=== PATIENT | male | born 1985 | race Caucasian/White ===

== ENCOUNTER 2019-08-29 05:07 | Day surgery (SDC) | payer OTHER, SELFPAY ==
[2019-08-29] VITALS (14 sets, daily range): BP systolic 114–151; BP diastolic 86–101; PULSE 43–94; RESP 10–22; TEMP 36.3–37.1; O2SAT 94–100; BMI 29.9
--- NOTE | 2019-08-29 05:14 | ED_ITS ---
Entered by Valerie Sanabria, acting as scribe for Iraida Jasmine Documented by User: Iraida Jasmine 08/29/19 05:20 HPI - Abdominal Pain General: Chief Complaint: Abdominal Pain Stated Complaint: RLQ PAIN Time Seen by Provider: 08/29/19 05:15 Source: patient and family Mode of arrival: ambulatory History of Present Illness: HPI narrative: 34 y/o male presents to the ED with complaint of abd pain. Pt states this started Tuesday while he was at work. He was awakened around 0100 this AM with sharp RLQ pain. Pt states he has had nausea, but no vomiting. MD elicited complaint: abdominal pain Onset (ago): day(s) (1) Pain Consistency: constant Location: RLQ Severity: moderate Quality: sharp Exacerbating factors: movement Relieving factors: nothing Associated Symptoms: Reports other (see HPI); Denies chills, coffee ground emesis, constipation, GI cramping, diarrhea, dysuria, fever(s), hematochezia, hematuria, hematemesis, melena, syncope and vomiting Review of Systems Const: Denies: fever, chills, body aches, fatigue, malaise or diaphoresis Eyes: Denies: change in vision or blurry vision ENMT: Denies: throat pain, painful swallowing, hoarseness, ear pain, ear discharge, Change in hearing or nasal discharge Card: Denies: chest pain, palpitations, irregular heart rhythm, syncope, pre- syncope, shortness of breath on exertion or shortness of breath when lying down Resp: Denies: shortness of breath, productive cough, non-productive cough, wheezing, coughing up blood or chest congestion GI: Reports: other (see HPI); Denies: vomiting, vomiting blood, coffee grounds in vomit, diarrhea, constipation, cramping, blood in stool or black tarry stool : Denies: flank pain, difficulty urinating, painful urination, urinary frequency, urinary urgency, decreased urine ouput, urinary incontinence or blood in urine Musc: Denies: neck pain, back pain, extremity pain, extremity swelling, joint pain, joint swelling, joint warmth or joint stiffness Skin/Breast: Denies: rash, skin tenderness or yellow skin Neuro: Denies: headache, numbness in extremities, weakness in extremities, changes in sensation, lack of coordination, difficulty walking, dizziness, vertigo or confusion Endo: Denies: excessive thirst, tired all the time, cold intolerance, excessive sweating, flushing or hot flashes Rajiv/Lymph: Denies: easy bruising, easy bleeding, petechiae or enlarged lymph nodes All/Imm: Denies: hives, throat swelling, tongue swelling, facial swelling or acute wheezing PFSH ED PFSH: Statuses (acute, chronic, etc) shown below reflect problem list status as previously entered and may not be historically accurate Medical History (Updated 08/29/19 @ 07:45 by Reji Dickey MD) Hypertension (Acute) Surgical History (Updated 08/29/19 @ 07:50 by Reji Dickey MD) Hx of oral surgery (Acute) Teeth extraction Social History (Updated 08/29/19 @ 07:50 by Reji Dickey MD) Smoking and tobacco status: current some day smoker cigars Alcohol intake: current Alcohol use comment: But rarely Physical Exam Const: COMMON NORMALS: no apparent distress, oriented x3, no limitations, healthy appearing and well nourished EXAM LIMITATIONS: no altered mental status GENERAL APPEARANCE: cooperative, well kempt and well developed ORIENTATION/CONSCIOUSNESS: Yes awake HENMT: COMMON NORMALS: normocephalic, head/scalp atraumatic, hearing grossly normal bilaterally, external ears normal, EAC's normal, external nose normal and moist oral mucous membranes HEAD & SCALP: normal to inspection, normocephalic and atraumatic FACE & SINUS: normal facial exam and face symmetric NOSE: external nose normal and nares normal EXTERNAL EAR: Yes external ears normal EXTERNAL AUDITORY CANAL: EAC's normal MOUTH: oral and palatal mucosa normal and tongue normal Eye: COMMON NORMALS: PERRL, EOMs intact bilaterally, conjunctivae normal and no scleral icterus GENERAL EYE: normal appearance of both eyes and normal light reflex CONJUNCTIVA: Yes conjunctivae normal SCLERA: sclerae normal CORNEA: Yes corneas normal PUPIL: Yes PERRL DIRECT OPHTHALMOSCOPY: Yes normal light reflex Neck/C-Spine: COMMON NORMALS: full ROM, no lymphadenopathy, supple, no meningeal signs and no JVD GENERAL: Yes normal visual inspection and Yes trachea midline CERVICAL SPINE: Yes cervical ROM normal Chest: COMMONS NORMALS: inspection of chest normal and palpation of chest normal Resp: COMMON NORMALS: normal respiratory effort, no retractions, no use of accessory muscles and clear to auscultation bilaterally EFFORT & INSPECTION: Yes able to speak in complete sentences AUSCULTATION: clear to auscultation bilaterally Cardio: COMMON NORMALS: no JVD, regular rate, regular rhythm, S1 normal heart sound, S2 normal heart sound, no gallops, no clicks, no murmurs and no rub JUGULAR VENOUS DISTENTION: no JVD RATE: regular rate RHYTHM: regular rhythm HEART SOUNDS: S1 normal and S2 normal : COMMON NORMALS: Yes no CVA tenderness BLADDER/KIDNEY EXAM: Yes no CVA tenderness Back/Pelvis: COMMON NORMALS: no CVA tenderness, thoracic and lumbar spine normal to inspection, no thoracic nor lumbar tenderness and thoraco-lumbar ROM normal Extremity: COMMON NORMALS: normal to inspection, full ROM, normal capillary refill, no joint enlargement, no clubbing, cyanosis or edema and no calf tenderness Neuro: COMMON NORMALS: oriented x3, CN's II-XII intact bilaterally, moves all extremities, no focal motor deficits and no sensory deficits noted MENINGEAL SIGNS: Yes no meningeal signs Psych: COMMON NORMALS: mental status grossly normal, thought process normal, cooperative, affect normal, speech normal and activity/motor behavior normal APPEARANCE: Yes well kempt SPEECH: Yes normal speech THOUGHT PROCESS: normal thought process Skin: COMMON NORMALS: no rashes or lesions noted, skin turgor normal, no jaundice, no petechiae and no mottling GENERAL SKIN EXAM: no rashes or lesions noted and turgor normal Course Vital Signs: Vital signs: Vital Signs Temperature 98.2 F 08/29/19 07:26 Pulse Rate 82 08/29/19 07:26 Respiratory Rate 16 08/29/19 07:26 Blood Pressure 137/87 08/29/19 07:26 Pulse Oximetry 98 08/29/19 07:26 MDM - Abdominal Pain Lab Data: Labs: Lab Results 08/29/19 08/29/19 08/29/19 Range/Units 05:30 05:30 06:40 WBC 15.3 H (4.0-10.0) 10^3/ uL RBC 5.36 H (4.1-5.3) 10^6/u L Hgb 15.8 (11.7-16.6) g/dL Hct 47.7 (42.0-52.0) % MCV 89.0 (80-94) fL MCH 29.5 (28.0-34.0) pg MCHC 33.1 (30.0-36.0) g/dL RDW 12.4 (12.1-15.1) % Plt Count 308 (130-400) 10^3/c mm MPV 9.2 (7.4-10.4) fL Neut % (Auto) 75.9 % Lymph % (Auto) 12.7 % [place] % (Auto) 10.2 % Eos % (Auto) 0.5 % Baso % (Auto) 0.3 % Neut # (Auto) 11.7 H (1.8-7.7) 10^3/u L Lymph # (Auto) 2.0 (0.8-4.8) 10^3/u L [place] # (Auto) 1.6 H (0.2-0.9) 10^3/u L Eos # (Auto) 0.1 (0.0-0.8) 10^3/u L Baso # (Auto) 0.0 (0.0-0.1) 10^3/u L Nucleated RBC % (a uto) 0 % Nucleated RBCs # 0.0 /100WBC Sodium 137 (136-145) mmol/L Potassium 4.0 (3.5-5.1) mmol/L Chloride 101 (98-107) mmol/L Carbon Dioxide 23 (22-29) mmol/L Anion Gap 17.0 (5-19) BUN 11 (6-20) mg/dL Creatinine 0.7 (0.7-1.2) mg/dL GFR Calculation 129.9 (90-130) mL/min Glucose 94 (74-109) mg/dL Calcium 10.0 (8.6-10.0) mg/Dl Total Bilirubin 1.3 H (0.15-1.2) mg/dL AST 28 (0-40) U/L ALT 54 H (0-41) U/L Alkaline Phosphata se 64 (40-130) IU/L Total Protein 7.5 (6.6-8.7) g/dL Albumin 4.2 (3.5-5.2) g/dL Globulin 3.3 (1.3-4.6) g/dL Lipase 24 (13-60) U/L Urine Color Yellow (Yellow) Urine Appearance Clear (CLEAR) Urine pH 8 H (5-7) Ur Specific Gravit y 1.005 (1.005-1.030) Urine Protein Neg (Negative) Urine Glucose (UA) Norm (Normal) Urine Ketones Negative (Negative) Urine Occult Blood Neg (Negative) Urine Nitrate Negative (Negative) Urine Bilirubin Neg (NEGATIVE) Prot Sulfosalicyli c Acd Negative Urine Urobilinogen Norm (Negative) mg/dL Ur Leukocyte Radha ase Negative (Negative) Urine RBC Rare (0-2) /hpf Urine WBC Rare (0-5) /hpf Ur Squamous Epith Cells None (0-5) Urine Bacteria None (NONE) Discharge Plan Discharge Patient Disposition: Admitted As Inpatient Referrals: Mc Gonzales DO [Family Provider] - Carri Olvera DO [Primary Care Provider] - Discharge Date/Time: 08/29/19 07:52 Sign Out Sign Out Data: Patient Sign Out occurred on 08/29/19 at 06:14. Patient's care was discussed, and care was transferred from to Chi Zaman DO. Post-Handoff Eval: Previous notes from Dr. Barber reviewed. We are waiting a CT of the abdomen radiology read as nonperforated appendicitis called discussed with Dr. Dickey he will come to the department see the patient patient informed. Coding Level of Care Code ED Application Support for Chg Fwd Exam Problem Focused Documented by User: Chi Zaman DO 08/29/19 07:53 HPI - Abdominal Pain General: Chief Complaint: Abdominal Pain Stated Complaint: RLQ PAIN Time Seen by Provider: 08/29/19 05:15 PFSH ED PFSH: Statuses (acute, chronic, etc) shown below reflect problem list status as previously entered and may not be historically accurate Medical History (Updated 08/29/19 @ 07:45 by Reji Dickey MD) Hypertension (Acute) Surgical History (Updated 08/29/19 @ 07:50 by Reji Dickey MD) Hx of oral surgery (Acute) Teeth extraction Social History (Updated 08/29/19 @ 07:50 by Reji Dickey MD) Smoking and tobacco status: current some day smoker cigars Alcohol intake: current Alcohol use comment: But rarely Course Vital Signs: Vital signs: Vital Signs Temperature 98.2 F 08/29/19 07:26 Pulse Rate 82 08/29/19 07:26 Respiratory Rate 16 08/29/19 07:26 Blood Pressure 137/87 08/29/19 07:26 Pulse Oximetry 98 08/29/19 07:26 MDM - Abdominal Pain Lab Data: Labs: Lab Results 08/29/19 08/29/19 08/29/19 Range/Units 05:30 05:30 06:40 WBC 15.3 H (4.0-10.0) 10^3/ uL RBC 5.36 H (4.1-5.3) 10^6/u L Hgb 15.8 (11.7-16.6) g/dL Hct 47.7 (42.0-52.0) % MCV 89.0 (80-94) fL MCH 29.5 (28.0-34.0) pg MCHC 33.1 (30.0-36.0) g/dL RDW 12.4 (12.1-15.1) % Plt Count 308 (130-400) 10^3/c mm MPV 9.2 (7.4-10.4) fL Neut % (Auto) 75.9 % Lymph % (Auto) 12.7 % [place] % (Auto) 10.2 % Eos % (Auto) 0.5 % Baso % (Auto) 0.3 % Neut # (Auto) 11.7 H (1.8-7.7) 10^3/u L Lymph # (Auto) 2.0 (0.8-4.8) 10^3/u L [place] # (Auto) 1.6 H (0.2-0.9) 10^3/u L Eos # (Auto) 0.1 (0.0-0.8) 10^3/u L Baso # (Auto) 0.0 (0.0-0.1) 10^3/u L Nucleated RBC % (a uto) 0 % Nucleated RBCs # 0.0 /100WBC Sodium 137 (136-145) mmol/L Potassium 4.0 (3.5-5.1) mmol/L Chloride 101 (98-107) mmol/L Carbon Dioxide 23 (22-29) mmol/L Anion Gap 17.0 (5-19) BUN 11 (6-20) mg/dL Creatinine 0.7 (0.7-1.2) mg/dL GFR Calculation 129.9 (90-130) mL/min Glucose 94 (74-109) mg/dL Calcium 10.0 (8.6-10.0) mg/Dl Total Bilirubin 1.3 H (0.15-1.2) mg/dL AST 28 (0-40) U/L ALT 54 H (0-41) U/L Alkaline Phosphata se 64 (40-130) IU/L Total Protein 7.5 (6.6-8.7) g/dL Albumin 4.2 (3.5-5.2) g/dL Globulin 3.3 (1.3-4.6) g/dL Lipase 24 (13-60) U/L Urine Color Yellow (Yellow) Urine Appearance Clear (CLEAR) Urine pH 8 H (5-7) Ur Specific Gravit y 1.005 (1.005-1.030) Urine Protein Neg (Negative) Urine Glucose (UA) Norm (Normal) Urine Ketones Negative (Negative) Urine Occult Blood Neg (Negative) Urine Nitrate Negative (Negative) Urine Bilirubin Neg (NEGATIVE) Prot Sulfosalicyli c Acd Negative Urine Urobilinogen Norm (Negative) mg/dL Ur Leukocyte Radha ase Negative (Negative) Urine RBC Rare (0-2) /hpf Urine WBC Rare (0-5) /hpf Ur Squamous Epith Cells None (0-5) Urine Bacteria None (NONE) Discharge Plan Discharge Patient Disposition: Admitted As Inpatient Referrals: Mc Gonzales DO [Family Provider] - Carri Olvera DO [Primary Care Provider] - Discharge Date/Time: 08/29/19 07:52 Sign Out Sign Out Data: Patient Sign Out occurred on 08/29/19 at 06:14. Patient's care was discussed, and care was transferred from to Chi Zaman DO. Post-Handoff Eval: Previous notes from Dr. Sunil reviewed. We are waiting a CT of the abdomen radiology read as nonperforated appendicitis called discussed with Dr. Dickey he will come to the department see the patient patient informed. Coding Level of Care Code ED Application Support for Chg Fwd Exam Problem Focused
--- NOTE | 2019-08-29 05:17 | CTR_ITS ---
PROCEDURE INFORMATION: Exam: CT Abdomen And Pelvis With Contrast Exam date and time: 08/29/2019 5:40 AM Age: 34 years old Clinical indication: Abdominal pain; Acute; Patient HX: Abd pain, rlq pain TECHNIQUE: Imaging protocol: Computed tomography of the abdomen and pelvis with intravenous contrast. Total DLP: 1176.71 mGy-cm Radiation optimization: All CT scans at this facility use at least one of these dose optimization techniques: automated exposure control; mA and/or kV adjustment per patient size (includes targeted exams where dose is matched to clinical indication); or iterative reconstruction. Contrast material: OMNI 300; Contrast volume: 95 ml; Contrast route: 20G; COMPARISON: No relevant prior studies available. FINDINGS: Liver: No mass. Gallbladder and bile ducts: No calcified stones. No ductal dilation. Pancreas: No ductal dilation. Spleen: Spleen measures 14cm in length. Adrenals: No mass. Kidneys and ureters: No hydronephrosis. Stomach and bowel: No obstruction. No mucosal thickening. Appendix: The appendix is thickened measuring approximately 11 mm with periappendiceal stranding. There are multiple appendicoliths noted in the lumen of the appendix. Intraperitoneal space: No free air. No significant fluid collection. Vasculature: No abdominal aortic aneurysm. Lymph nodes: No enlarged lymph nodes. Bladder: Unremarkable as visualized. Reproductive: Unremarkable as visualized. Bones/joints: Unremarkable. No acute fracture. Soft tissues: Unremarkable. CT/CT abdomen pelvis w con* [id number] IMPRESSION: Non perforated appendicitis. Radiation Dose CTDIVOL = (mGy): DLP = 1176.71 (mGy-cm)
[2019-08-29] MEDS: ondansetron 2 mg/ML SDV 2 mL 4 MG IVP (05:35)
[2019-08-29] MEDS: morphine 4 mg/mL SDV 1 mL IVP (05:35)
[2019-08-29] MEDS: sodium chloride 0.9% 1,000 ML 999 ML IV (05:36)
[2019-08-29 05:37] LABS: Basophils % 0.3 %; Eosinophils # 0.1 10^3/uL (0.0-0.8); Eosinophils % 0.5 %; Hematocrit 47.7 % (42.0-52.0); Hemoglobin 15.8 g/dL (11.7-16.6); Lymphocytes % 12.7 %; Mean Corpuscular HGB Conc 33.1 g/dL (30.0-36.0); Mean Corpuscular Hemoglobin 29.5 pg (28.0-34.0); Mean Platelet Volume 9.2 fL (7.4-10.4); Monocytes # 1.6 10^3/uL (0.2-0.9); Monocytes % 10.2 %; Neutrophils # 11.7 10^3/uL (1.8-7.7); Neutrophils % 75.9 %; Nucleated Red Blood Cells % 0 %; Platelet Count 308 10^3/cmm (130-400); Red Blood Count 5.36 10^6/uL (4.1-5.3); Red Cell Distribution Width 12.4 % (12.1-15.1); White Blood Count 15.3 10^3/uL (4.0-10.0)
--- NOTE | 2019-08-29 05:40 | PC.NURSE ---
Introduced self to patient and initiated vital signs. Pt is A&O x 3 and agreeable. Pt states that the reason for the ER visit today is due to LRQ abdominal pain which presented yesterday but progressed to unbearable pain this AM. Reassured patient of needs and will continue to monitor.
[2019-08-29 05:54] LABS: Alanine Aminotransferase 54 U/L (0-41); Albumin Level 4.2 g/dL (3.5-5.2); Alkaline Phosphatase 64 IU/L (40-130); Blood Urea Nitrogen 11 mg/dL (6-20); Carbon Dioxide 23 mmol/L (22-29); Chloride 101 mmol/L (98-107); Globulin 3.3 g/dL (1.3-4.6); Glomerular Filtration Rate 129.9 mL/min (90-130); Glucose 94 mg/dL (74-109); Lipase 24 U/L (13-60); Sodium 137 mmol/L (136-145); Total Bilirubin 1.3 mg/dL (0.15-1.2); Total Protein 7.5 g/dL (6.6-8.7)
[2019-08-29] MEDS: iohexol 300 mg/mL 100 mL Btl IV (05:57)
[2019-08-29 06:41] LABS: Aspartate Amino Transferase 28 U/L (0-40)
[2019-08-29 06:59] LABS: Bilirubin Urine Neg (NEGATIVE); Blood Urine Neg (Negative); Glucose Urine UA Norm (Normal); Ketones Urine Negative (Negative); Leukocyte Esterase Urine Negative (Negative); Nitrate Urine Negative (Negative); Protein Urine Neg (Negative); Specific Gravity, Urine 1.005 (1.005-1.030); Urine Appearance Clear (CLEAR); Urine Color Yellow (Yellow); Urobilinogen Urine Norm (Negative); pH Urine 8 (5-7)
[2019-08-29 07:01] LABS: Sulfosalicylic Acid Urine Negative
[2019-08-29 07:03] LABS: Add Urine Culture? No; RBC Urine RARE /hpf (0-2); WBC Urine RARE /hpf (0-5)
[2019-08-29] MEDS: sodium chloride 0.9% 1,000 ML 125 ML IV (07:18)
--- NOTE | 2019-08-29 07:44 | P.HP_ITS ---
Providers/Chief Complaint Admitting Physician: General Surgery Reji Dickey MD Primary Care Provider: Carri Olvera DO Chief Complaint: RLQ PAIN History of Present Illness Milo Herndon is a 34 year old male who says he developed some suprapubic pain yesterday afternoon. As the evening went on it worsened. He said he awoke around 1 AM this morning with significant pain in the right lower quadrant of the abdomen. He was nauseated but did not vomit. He said over the past couple of days he has been having some loose stool but it was actually getting better when he had a bowel movement last night. He has not had any hematochezia, etc. He denies any fevers or chills. He denies any urinary symptoms. He came to the emergency room and a CAT scan revealed evidence of acute appendicitis. Review of Systems General: Reports: 10 or more systems reviewed and unremarkable except in HPI and below Medications/Allergies Allergies Allergy/AdvReac Type Severity Reaction Status Date / Time No Known Allergies Allergy Verified 08/29/19 05:20 Additional Medication Information Additional Medication Information: Patient states he takes lisinopril 10 mg once a day. PFSH Acute PFSH: Statuses (acute, chronic, etc) shown below reflect problem list status as previously entered and may not be historically accurate Medical History (Updated 08/29/19 @ 07:45 by Reji Dickey MD) Hypertension (Acute) Surgical History (Updated 08/29/19 @ 07:50 by Reji Dickey MD) Hx of oral surgery (Acute) Teeth extraction Social History (Updated 08/29/19 @ 07:50 by Reji Dickey MD) Smoking and tobacco status: current some day smoker cigars Alcohol intake: current Alcohol use comment: But rarely Vitals/I&O/Wt Last Vital Signs Temp 98.2 F 08/29/19 07:26 Pulse 82 08/29/19 07:26 Resp 16 08/29/19 07:26 BP 137/87 08/29/19 07:26 Pulse Ox 98 08/29/19 07:26 Weight last 48 hrs Weight 215 lb Physical Exam Narrative: EXAM NARRATIVE: The patient was encountered in his room in the emergency room. He does not appear to be in any acute distress. The pupils seem equal. No carotid bruits heard. Lungs are clear. The heart is regular. The abdomen reveals bowel sounds may be somewhat hypoactive. The abdomen is moderately obese but is soft. Rovsing's sign is negative. The patient does have his maximum point of tenderness over McBurney's point in the right lower quadrant. Percussion tenderness is equivocal, however. No obvious masses are palpated. The extremities reveal no edema. Neurologically the patient appears to be grossly intact. Data : 08/29/19 05:30 08/29/19 05:30 Other Labs: White blood cell count is elevated at 15,000 with a left shift. CT Abd/Pel: My impression: The appendix is somewhat thick walled and has some mild inflammatory changes surrounding it. It extends directly inferiorly from the cecum. Radiologist's impression: IMPRESSION: Non perforated appendicitis. A&P Assessment and plan (1) Acute appendicitis: I discussed appendicitis and appendectomy is with the patient. We have also discussed conservative management. Risks of surgery including bleeding, infection, internal organ injury, etc. were all gone over. He seems to understand and would like to proceed with an appendectomy this morning. The patient last had some coffee with creamer around 4 AM this morning but was o therwise n.p.o. since last night. We will make arrangements to proceed to the operating room at some point this morning for an appendectomy. Status: Acute Code(s): K35.80 - Unspecified acute appendicitis Attestations Medical Necessity Statement*: The patient would like to try to go home today if at all possible and there are no contraindications based on what is found or what occurs during surgery. He will be treated as an outpatient for now. Coding Level of Care Code Acute [employer] for Franklyn Steele Diagnoses Acute appendicitis K35.80
--- NOTE | 2019-08-29 08:28 | P.ANES_ITS ---
Pre-Anesthetic Assessment Pre-Anesthetic Assessment: Height/Weight: Height 1.8 m Weight 97.522 kg Temp Pulse Resp BP Pulse Ox 98.2 F 82 16 137/87 98 08/29/19 07:26 08/29/19 07:26 08/29/19 07:26 08/29/19 07:26 08/29/19 07:26 Proposed Procedure: Operation Date: 08/29/19 08:30 Proposed Procedures p Laparoscopic Appendectomy(Not Applicable) - Reji Dickey MD Last intake: Intake Last Liquid Date 08/29/19 Last Liquid Time 04:00 Last Solid Date 08/28/19 Last Solid Time 18:00 Social: Social History: Tobacco (quit 2005) Exam: Pre-Anes Outpt Exam: alert, oriented x 3, clear to auscultation bilaterally and regular rate & rhythm Airway: Submandibular: WNL Cervical ROM: WNL MP: 2 Dentition: Full History/ROS: No significant history except as noted Pulmonary: Pulmonary: None reported CV/HEM: CV/HEM: None reported : : None reported Hepatic: Hepatic: None reported GI: GI: GERD (occ) Metabolic: Metabolic: None reported Musc/skel: Musc/skel: None reported Neuropsych: Neuropsych: None reported Anesthetic Plan: ASA status: II Anesthesia: Anesthesia Evaluation and General Risk of > 500 ml blood loss (7ml/kg in children): No Meds/Allergies Current Medications: Current Medications Generic Name Dose Route Start Last Admin Trade Name Freq PRN Reason Stop Dose Admin Sodium Chloride 1,000 mls @ 125 m ls/hr 08/29/19 07:15 08/29/19 07:18 Sodium Chloride 0.9% IV 125 mls/hr .Q8H MARKOS Administration Additional Medication Information: Patient states he takes lisinopril 10 mg once a day. PFSH Anesthesia PFSH: Medical History (Updated 08/29/19 @ 07:45 by Reji Dickey MD) Hypertension (Acute) Surgical History (Updated 08/29/19 @ 07:50 by Reji Dickey MD) Hx of oral surgery (Acute) Teeth extraction Social History (Updated 08/29/19 @ 07:50 by Reji Dickey MD) Smoking and tobacco status: current some day smoker cigars Alcohol intake: current Alcohol use comment: But rarely Data Anesthesia CBC & Chem 7: 08/29/19 05:30 08/29/19 05:30 Other Labs: Laboratory Results - last 48 hr 08/29/19 08/29/19 08/29/19 05:30 05:30 06:40 WBC 15.3 H RBC 5.36 H Hgb 15.8 Hct 47.7 MCV 89.0 MCH 29.5 MCHC 33.1 RDW 12.4 Plt Count 308 MPV 9.2 Neut % (Auto) 75.9 Lymph % (Auto) 12.7 [place] % (Auto) 10.2 Eos % (Auto) 0.5 Baso % (Auto) 0.3 Neut # (Auto) 11.7 H Lymph # (Auto) 2.0 [place] # (Auto) 1.6 H Eos # (Auto) 0.1 Baso # (Auto) 0.0 Nucleated RBC % (auto) 0 Nucleated RBCs # 0.0 Sodium 137 Potassium 4.0 Chloride 101 Carbon Dioxide 23 Anion Gap 17.0 BUN 11 Creatinine 0.7 GFR Calculation 129.9 Glucose 94 Calcium 10.0 Total Bilirubin 1.3 H AST 28 ALT 54 H Alkaline Phosphatase 64 Total Protein 7.5 Albumin 4.2 Globulin 3.3 Lipase 24 Urine Color Yellow Urine Appearance Clear Urine pH 8 H Ur Specific [place] 1.005 Urine Protein Neg Urine Glucose (UA) Norm Urine Ketones Negative Urine Occult Blood Neg Urine Nitrate Negative Urine Bilirubin Neg Prot Sulfosalicylic Acd Negative Urine Urobilinogen Norm Ur Leukocyte Esterase Negative Urine RBC Rare Urine WBC Rare Ur Squamous Epith Cells None Urine Bacteria None Cardiac Studies: No Data to Display
[2019-08-29] MEDS: fentaNYL 50 mcg/mL INJ 2mL IVP (09:18)
--- NOTE | 2019-08-29 10:02 | PM.OP ---
Operative Report Date of procedure: 08/29/19 Pre-op Diagnosis: Acute appendicitis. Post-op diagnosis: same Procedure Done: Laparoscopic appendectomy. Specimens removed/disposition: Appendix. Surgeon: Reji Dickey Anesthesia: General Estimated blood loss (mL): 10 Complications: None. Condition: stable Disposition: PACU Procedure: The patient was brought to the Operating Room and was placed in a supine position on the operating room table. General endotracheal anesthesia was induced. The abdomen was prepped and draped in a sterile fashion. A small vertical incision was carried out in the superior aspect of the umbilicus. Blunt dissection was carried out down to the fascia, which was grasped with a Evens clamp. A stay suture of 0 Vicryl was placed on either side of the midline and the midline fascia was incised. The underlying peritoneum was opened bluntly and the Jigna port was placed directly into the peritoneal cavity and was held in place with the inflatable balloon. The peritoneal cavity was insufflated with carbon dioxide. The laparoscope was used to inspect the peritoneal cavity. No gross abnormalities were initially noted. Two 5-millimeter ports were placed in the left lower quadrant under direct vision. The patient was tilted in a Trendelenburg position and slightly to the left side. A laparoscopic [place] was used to elevate the cecum and the appendix was identified. The appendix was dilated and had injected blood vessels on its surface. The appendix was freed using blunt dissection and was then elevated. The edematous mesoappendix was divided using cautery to maintain hemostasis at the base of the appendix. The base of the appendix appeared healthy and was divided using an endoscopic stapler. The appendix was removed from the peritoneal cavity after being placed in a laparoscopic bag. The right lower quadrant and pelvis were irrigated. The staple line on the cecum was identified and appeared to be in good condition. The Jigna port was removed from the umbilical site and the stay sutures of Vicryl were tied to each other at the umbilicus[], closing the fascial defect so that it was airtight. A final round of irrigation was carried out in the right lower quadrant and the pelvis. No ongoing problems were seen. The remaining ports were removed from the abdominal wall as the pneumoperitoneum was evacuated. All skin incisions were closed using inverted interrupted sutures of 4-0 Vicryl. Benzoin and Steri-Strips were placed over the incisions and Band-Aids followed. The patient was taken to the Recovery Room in stable condition postoperatively.
--- NOTE | 2019-08-29 10:24 | SUR.PHASEI ---
PT IN PACU SLEEPY WITH GOOD RESP NOTED ABD SOFT WITH 3 SITES WITH BANDAIDS STERIS AND 2X2 VSS PT WITH ORAL AIRWAY IN PLACE NO DISTRESS NOTED.
--- NOTE | 2019-08-29 10:29 | SUR.PHASEI ---
PT NOW AWAKES FOR SHORT TIME, PT VERBALLY DENIES PAIN AND NAUSEA, ORAL AIRWAY OUT
[2019-08-29] MEDS: HYDROcodone-acetaminophen 5-325 mg Tablet 1 TAB PO (11:16)
== END 2019-08-29 11:35 | disposition home or self-care (01) ==
LOC: ER 07:43 → OR 07:47
PROVIDERS: Emergency Medicine; Emergency Provider Family Medicine; Family Provider Family Medicine; PCP Family Medicine; Visit Provider Surgery
PROC: 0DTJ4ZZ Resection of Appendix, Percutaneous Endoscopic Approach (ICD-10-PCS; CPT 44970; principal; 2019-08-29 08:30)
DX: K35.80 Unspecified acute appendicitis (principal); I10 Essential (primary) hypertension; F17.290 Nicotine dependence, other tobacco product, uncomplicated
CPT/HCPCS: 44970; 12345; 74177; 80053; 81001; 83690; 85025; 88304; 96360; 96361; 96374; 99282; J0330; J1100; J2001; J2270; J2405; J2704; J2710; J3010; J3490; J7030; Q9967

== ENCOUNTER 2021-07-05 11:01 | Emergency (ER) | payer OTHER, SELFPAY ==
[2021-07-05] VITALS (7 sets, daily range): BP systolic 125–133; BP diastolic 56–88; PULSE 93–117; RESP 16–24; TEMP 37.3–38.6; O2SAT 89–95; BMI 29.1
--- NOTE | 2021-07-05 13:28 | XRR_ITS ---
PROCEDURE INFORMATION: Exam: XR Chest Exam date and time: 07/05/2021 1:28 PM Age: 36 years old Clinical indication: Patient HX: Covid +, cough, SOB; Additional info: Covid, SOB TECHNIQUE: Imaging protocol: XR of the chest. Views: 1 view. Total images: 1 COMPARISON: CT abdomen pelvis w con* [id number] 08/29/2019 6:08 AM FINDINGS: Lungs: No visible active interstitial or alveolar airspace disease. Rare calcified granuloma of antecedent disease. Pleural spaces: Unremarkable. No pleural effusion. No pneumothorax. Heart/Mediastinum: Cardiac structures and configuration within normal limits. Bones/joints: Unremarkable. XR/XR chest 1V portable [id number] IMPRESSION: Nonacute. Radiation Dose CTDIVOL = (mGy): DLP = (mGy-cm)
--- NOTE | 2021-07-05 14:40 | W.ED.GENADLT ---
HPI - General Adult General: Chief complaint: COVID symptoms Stated complaint: COVID +/SOB/WEAKNESS Time Seen by Provider: 07/05/21 14:06 History of Present Illness: HPI narrative: CC: Shortness of breath, fever and generalized weakness HPI: This is a [36] yo patient w/ hx of COVID symptoms x 9 days presenting to the ED with malaise, generalized weakness, cough sputum production, and fever at home worsening since onset of symptoms. Patient tells me he noticed his O2 sats would drop to 88% while sleeping. Since onset of symptoms, has had some shortness of breath and decreased PO intake. NO recent travel. Endorses no sick contacts around. +nausea/+vomiting/+diarrhea. Denies any pleuritic chest pain, recent surgery/immobilization/travel, or hematemesis or hx of VTE in the past. Onset: 9 days ago Duration: ongoing for the last 9 days Location: home Severity: moderate Review of Systems Narrative: Constitutional: +subjective fever, +generalized weakness HEENT: No vision changes CV: No chest pain, no palpitations PULM: +cough, +dyspnea. GI: No abdominal pain, +N/+V/+D. : No dysuria MSKEL: No muscle pain SKIN: No new rashes, no lesions. NEURO: No headache, no focal weakness. HEME: No visible bruises PSYCH: Normal mood [facility] PFSH: Medical History (Updated 07/05/21 @ 14:37 by Luke Andrew MD) Hypertension Surgical History (Updated 08/29/19 @ 07:50 by Reji Dickey MD) Hx of oral surgery Teeth extraction Social History (Updated 08/29/19 @ 07:50 by Reji Dickey MD) Smoking and tobacco status: current some day smoker cigars Alcohol intake: current Physical Exam Narrative: EXAM NARRATIVE: Head: Atraumatic Eyes: PERRL, conjunctiva without injection ENT: Mucous membrane moist NECK: Supple without lymphadenopathy LUNGS: Coarse lung sounds, tachypnea, no crackles/wheezes/rhonchi on exam CV: RRR ABDOMEN: Soft, no focal TTP. NO guarding rebound, guarding, rigidity. No CVA tenderness to percussion. Neg Tate/Neg McBurney's point tenderness, no suprabupic tenderness to palpation. EXTREMITY: Normal ROM SKIN: No rash or erythema NEURO: Awake and alert. No focal motor deficits. PSYCH: Normal mood and affect. Course Vital Signs: Vital signs: Vital Signs Temperature 100.1 F H 07/05/21 17:34 Pulse Rate 93 07/05/21 17:34 Respiratory Rate 16 07/05/21 17:34 Blood Pressure 133/81 07/05/21 17:34 Pulse Oximetry 94 07/05/21 17:34 MDM - General Adult MDM Narrative: Medical decision making narrative: [36]yo patient presenting to the ED with shortness of breath, cough, and malaise concerning for worsening COVID. Workup today includes XR chest and COVID labs. The patient is well appearing with stable vital signs and without recent hospitalization or care facility stay. Given History, Exam, and Workup presentation most consistent with pneumonia.Presentation not consistent with PE, COPD exacerbation, Pneumothorax, TB, Atypical ACS, Esophageal Rupture, Toxic Exposure, Foreign Body Airway Obstruction. Workup: CXR Chest, COVID antigen/ COVID PCR send out, covid labs Intervention: Tylenol 1gram, IVF, PO challenge, serial reassessment, oxygen [3:42pm] On reassessment, XR negative for signs of covid pna. Findings consistent with viral pneumonia, suspected COVID. Afebrile currently. Patient continues to be in no respiratory distress with sats sats > 95% without requirements of oxygen in the emergency department. Will be scheduled for outpatient NASRA infusion tomorrow morning. Patient tolerated p.o. without any difficulty in the emergency room. Ambulate without any decrease in O2 sats. Patient was assessed by respiratory therapy today with recommendation for no home oxygen at this time. Patient is aware of the importance of follow-up with pulse ox daily to ensure that his oxygen saturation does not drop further. I have given patient follow up with our special education case manager to be seen by our outpatient monoclonal antibody clinic. Patient aware of a call from our special education case manager to schedule for appointment(s) and verbalizes understanding of the importance of following up. Disposition: BAM infusion in the AM and discharge home. I have given patient strict return precautions for any complications relating to BAM therapy Lab Data: Labs: Lab Results 07/05/21 07/05/21 07/05/21 14:23 14:23 14:23 WBC 5.0 10^3/uL 10^3/ uL (4.0-10.0) RBC 5.49 10^6/uL H 10 ^6/uL (4.1-5.3) Hgb 16.4 g/dL g/dL (11.7-16.6) Hct 48.5 % % (42.0-52.0) MCV 88.3 fl fl (80-94) MCH 29.9 pg pg (28.0-34.0) MCHC 33.8 g/dL g/dL (30.0-36.0) RDW 12.6 % % (12.1-15.1) Plt Count 200 10^3/cmm 10^3 /cmm (130-400) MPV 9.6 fL fL (7.4-10.4) Neut % (Auto) 79.7 % % Lymph % (Auto) 14.7 % % [place] % (Auto) 5.0 % % Eos % (Auto) 0.0 % % Baso % (Auto) 0.2 % % Neut # (Auto) 3.97 10^3/uL 10^3 /uL (1.8-7.7) Lymph # (Auto) 0.7 10^3/uL L 10^ 3/uL (0.8-4.8) [place] # (Auto) 0.3 10^3/uL 10^3/ uL (0.2-0.9) Eos # (Auto) 0.0 10^3/uL 10^3/ uL (0.0-0.8) Baso # (Auto) 0.0 10^3/uL 10^3/ uL (0.0-0.1) Nucleated RBC % (a uto) 0 % % Nucleated RBCs # 0.0 /100WBC /100W BC PT 14.20 SECONDS SEC ONDS (12.1-14.9) INR 1.07 (0.8-1.2) APTT 33.3 SECONDS SECO NDS (23.9-36.7) Sodium 134 mmol/L L mmol /L (136-145) Potassium 4.1 mmol/L mmol/L (3.5-5.1) Chloride 94 mmol/L L mmol/ L (98-107) Carbon Dioxide 26 mmol/L mmol/L (22-29) Anion Gap 18.1 (5-19) BUN 10 mg/dL mg/dL (6-20) Creatinine 0.7 mg/dL mg/dL (0.7-1.2) GFR Calculation 128.3 mL/min mL/m in (90-130) Glucose 95 mg/dL mg/dL (65-115) Calculated Osmolal ity 277 mOsm/kg L mOs m/kg (285-295) Lactic Acid Calcium 8.7 mg/dL mg/dL (8.5-10.5) Total Bilirubin 0.9 mg/dL mg/dL (0.15-1.2) AST 46 U/L H U/L (0-40) ALT 47 U/L H U/L (0-41) Alkaline Phosphata se 72 IU/L IU/L (40-130) C-Reactive Protein 50.7 mg/L H mg/L (0.0-4.9) Total Protein 7.4 g/dL g/dL (6.6-8.7) Albumin 4.4 g/dL g/dL (3.5-5.2) Globulin 3.0 g/dL g/dL (1.3-4.6) 07/05/21 14:23 WBC RBC Hgb Hct MCV MCH MCHC RDW Plt Count MPV Neut % (Auto) Lymph % (Auto) [place] % (Auto) Eos % (Auto) Baso % (Auto) Neut # (Auto) Lymph # (Auto) [place] # (Auto) Eos # (Auto) Baso # (Auto) Nucleated RBC % (a uto) Nucleated RBCs # PT INR APTT Sodium Potassium Chloride Carbon Dioxide Anion Gap BUN Creatinine GFR Calculation Glucose Calculated Osmolal ity Lactic Acid 2.0 mmol/L mmol/L (0.5-2.2) Calcium Total Bilirubin AST ALT Alkaline Phosphata se C-Reactive Protein Total Protein Albumin Globulin Imaging Data^: Other Imaging: Radiologist's impression: [address] [id number] ReportSigned Patient: Milo Herndonnit #: [id number]: 1985Acct#:[id number]/Sex: 36 / MADM Date: 07/05/21Loc: ERRoom/Bed:Attending Dr: Ordering Provider/Ordering MD: Lizette Mayes Date of Service: 07/05/21 Procedure(s): XR chest 1V portable [id number] Accession Number(s): [id number] Report Number: [id number] PROCEDURE INFORMATION: Exam: XR Chest Exam date and time: 07/05/2021 1:28 PM Age: 36 years old Clinical indication: Patient HX: Covid +, cough, SOB; Additional info: Covid, SOB TECHNIQUE: Imaging protocol: XR of the chest. Views: 1 view. Total images: 1 COMPARISON: CT abdomen pelvis w con* [id number] 08/29/2019 6:08 AM FINDINGS: Lungs: No visible active interstitial or alveolar airspace disease. Rare calcified granuloma of antecedent disease. Pleural spaces: Unremarkable. No pleural effusion. No pneumothorax. Heart/Mediastinum: Cardiac structures and configuration within normal limits. Bones/joints: Unremarkable. XR/XR chest 1V portable [id number] IMPRESSION: Nonacute. Radiation Dose CTDIVOL = (mGy): DLP = (mGy-cm) Dictated By:Richi Osuna By:Richi Osuna Date/Time:07/05/21 [id number]/ [id number] Discharge Plan Discharge Patient Disposition: Home Clinical Impression: COVID, Generalized weakness, Nausea & vomiting, Diarrhea, Fever, Cough Condition: Stable Prescriptions: New acetaminophen 500 mg tablet 500 mg PO Q6H PRN (Reason: pain) 5 Days Qty: 20 RF: 0 Zofran 4 mg tablet 4 mg PO TID PRN (Reason: nausea and vomiting) 4 Days Qty: 12 RF: 0 Pepcid 20 mg tablet 20 mg PO BID PRN (Reason: abdominal pain) 10 Days Qty: 20 RF: 0 Maalox Advanced 1,000-60 mg tablet,chewable 1 tab PO TID PRN (Reason: abdominal pain) 7 Days Qty: 21 RF: 0 No Action lisinopril 5 mg tablet 10 mg PO DAILY RF: 0 hydrocodone-acetaminophen 5-325 mg tablet 1 - 2 tab PO Q5H PRN (Reason: pain) Qty: 30 RF: 0 Discharge Orders: Discharge ED (Routine); Ordered 07/05/21 Ordered By: Luke Andrew Other Ambulatory Orders: Request for MCA (Urgent) Timeframe: 1 Day Facility: [facility] - Location: Outpatient Surgical Services Ordered By: Luke Andrew Referrals: Carri Olvera DO [Primary Care Provider] - Discharge Diet: Advance as tolerated Discharge Activity: Resume usual activity Patient Instructions: COVID-19 (Coronavirus Disease 2019) (ED) Activity Restrictions/Additional Instructions: Come back to the emergency room if your symptoms worsen, have any shortness of breath, fever/chills, dehydration, inability tolerate p.o., any difficulty breathing, or any new or concerning complaints. Please continue to use your pulse ox to monitor your O2 saturation. Come back if your O2 drops below 90%. Coding Level of Care Code ED Wind Turbine Installer for Franklyn Steele
[2021-07-05 14:45] LABS: Basophils % 0.2 %; Hematocrit 48.5 % (42.0-52.0); Hemoglobin 16.4 g/dL (11.7-16.6); Lymphocytes # 0.7 10^3/uL (0.8-4.8); Lymphocytes % 14.7 %; Mean Corpuscular HGB Conc 33.8 g/dL (30.0-36.0); Mean Corpuscular Hemoglobin 29.9 pg (28.0-34.0); Mean Corpuscular Volume 88.3 fl (80-94); Mean Platelet Volume 9.6 fL (7.4-10.4); Monocytes # 0.3 10^3/uL (0.2-0.9); Neutrophils # 3.97 10^3/uL (1.8-7.7); Neutrophils % 79.7 %; Nucleated Red Blood Cells % 0 %; Platelet Count 200 10^3/cmm (130-400); Red Blood Count 5.49 10^6/uL (4.1-5.3); Red Cell Distribution Width 12.6 % (12.1-15.1)
[2021-07-05] MEDS: sodium chloride 0.9% 1,000 ML 999 ML IV ×2 (14:54→17:08)
[2021-07-05 14:55] LABS: Partial Thromboplastin Time 33.3 SECONDS (23.9-36.7)
[2021-07-05] MEDS: acetaminophen 500 mg Tablet 1000 MG PO (14:56)
[2021-07-05] MEDS: lidocaine 2% viscous 15 ML, aluminum-mag hydrox-simethicon 30 ML, sucralfate oral liq 1 GM PO (14:56)
[2021-07-05] MEDS: ondansetron 2 mg/ML SDV 2 mL 4 MG IVP (14:58)
[2021-07-05 14:59] LABS: INR 1.07 (0.8-1.2)
[2021-07-05 15:13] LABS: Alanine Aminotransferase 47 U/L (0-41); Albumin Level 4.4 g/dL (3.5-5.2); Alkaline Phosphatase 72 IU/L (40-130); Anion Gap 18.1 (5-19); Aspartate Amino Transferase 46 U/L (0-40); Blood Urea Nitrogen 10 mg/dL (6-20); C Reactive Protein 50.7 mg/L (0.0-4.9); Calcium 8.7 mg/dL (8.5-10.5); Carbon Dioxide 26 mmol/L (22-29); Chloride 94 mmol/L (98-107); Glomerular Filtration Rate 128.3 mL/min (90-130); Glucose 95 mg/dL (65-115); Osmolality Calculated 277 mOsm/kg (285-295); Potassium 4.1 mmol/L (3.5-5.1); Sodium 134 mmol/L (136-145); Total Bilirubin 0.9 mg/dL (0.15-1.2); Total Protein 7.4 g/dL (6.6-8.7)
[2021-07-05] MEDS: ketorolac 30 mg/mL INJ IVP (17:30)
--- NOTE | 2021-07-06 10:40 | DCPLANNER ---
manager of creative services had message to schedule an monoclonal antibody infusion for patient. manager of creative services spoke with patient to confirm if patient still wanted infusion and if patient had a positive test. Patient stated that he had a positive test at [facility], case making machine operator called to have the positive test results sent to ER. manager of creative services called centralized scheduling, to see if patient could be put onto the schedule for the infusion, case making machine operator spoke with [facility], was told that patient could not be fit in for an infusion today. manager of creative services informed ED physician of this, and called the patient and informed the patient that case making machine operator was unable to get patient scheduled for the infusion.
== END 2021-07-05 19:00 | disposition home or self-care (01) ==
PROVIDERS: Physician Assistant; Emergency Provider Emergency Medicine; PCP Family Medicine
DX: U07.1 COVID-19 (principal); I10 Essential (primary) hypertension; F17.210 Nicotine dependence, cigarettes, uncomplicated
CPT/HCPCS: 36415; 71045; 80053; 83605; 85025; 85610; 85730; 86140; 87040; 96361; 96374; 96375; 99284; J1885; J2405; J7030

== ENCOUNTER → 2023-05-06 09:53 | Outpatient (BNVA) | payer OTHER, SELFPAY | PROVIDERS: PCP Family Medicine; Referring Provider Family Medicine; Visit Provider Student in an Organized Health Care Education/Training Program | DX: M75.22 Bicipital tendinitis, left shoulder | CPT/HCPCS: 73030 ==

== ENCOUNTER 2023-09-28 07:10 | Day surgery (SDC) | payer OTHER, SELFPAY ==
[2023-09-28] VITALS (15 sets, daily range): BP systolic 129–156; BP diastolic 89–107; PULSE 61–80; RESP 14–16; TEMP 36.1–36.6; O2SAT 92–99; BMI 30.4
--- NOTE | 2023-09-28 07:57 | ANES.PREANE2 ---
Pre-Anesthetic Assessment Height/Weight: Height 1.83 m Temp Pulse Resp BP Pulse Ox O2 Del Method 97.6 F 80 14 153/96 97 Room Air 09/28/23 07:29 09/28/23 07:29 09/28/23 07:29 09/28/23 07:29 09/28/23 07:29 09/28/23 07:33 Operation Date: 09/28/23 08:50 Proposed Procedures p Shoulder Arthroscopy/ diagnostic and arthroscopic surgery with possible biceps tenodesis(Left) - Harrison Yoni, DO s Subacromial Decompression(Left) - Harrison Vallejo, DO Familial anesthetic complications: None Was Beta Bety taken within 24 hours: N/A Was Clonidine taken within 24 hours: N/A Last intake: Intake Last Liquid Date 09/27/23 Last Liquid Time 22:00 Last Solid Date 09/27/23 Last Solid Time 19:00 Social No alcohol and No tobacco Exam alert, oriented x 3, clear to auscultation bilaterally and regular rate & rhythm Airway Mallampati: Class II Dentition: partials CV/HEM Hypertension Anesthetic Plan ASA status: 2 Anesthesia: General and Regional (specify below) Risk of > 500 ml blood loss (7ml/kg in children): No Medications/Allergies Home Medications Medication Instructions Recorded Confirmed Last Taken Type cetirizine 10 mg capsule (Zyrtec) 10 mg PO DAILY PRN Allergy Symptoms 05/06/23 09/27/23 09/26/23 History ibuprofen 200 mg capsule 200 mg PO Q6H PRN Pain 05/06/23 09/28/23 09/14/23 History valsartan 80 mg tablet 80 mg PO DAILY 05/06/23 09/27/23 09/27/23 History Allergies Allergy/AdvReac Type Severity Reaction Status Date / Time No Known Allergies Allergy Verified 08/23/23 14:45 PFSH Anesthesia Medical History Hypertension Surgical History Hx of oral surgery Teeth extraction Social History Smoking and tobacco/nicotine status: current some day tobacco/nicotine user cigars Alcohol intake: current Alcohol intake frequency: few times a month Data Anesthesia Cardiac Studies: No Data to Display
[2023-09-28] MEDS: sodium chloride 0.9% 1,000 ML 30 ML IV (07:59)
--- NOTE | 2023-09-28 08:13 | ANES.PROC ---
Anesthesia Procedures Procedure/Date: 09/28/23 Nerve Block ^: Nerve Block 1: Main Anesthesia: general anesthesia Time Out Performed: Yes Consent: requested by attending/covering physician, from patient, risks and benefits reviewed and patient agrees to proceed Nerve block location: interscalene (L) Anesthesia monitors applied: pulse oximetry, EKG and BP cuff Anesthetic Used: ropivicaine 0.5% (20 ml) and with decadron (3 mg) Ultrasound used to: recognize landmarks, visualize and ID brachial plexus and visualize and ID interscalene groove Nerve Stimulator Used?: No Interscalene/Femoral BLK: 2 stimuplex 22 g needle used for position and inplane approach, visualize local anesthetic spread and no vascular puncture identified Patient Tolerated Procedure: well Complications: none
[2023-09-28] MEDS: scopolamine 1.5 Patch 1 PATCH TRANSDERMA (08:14)
[2023-09-28] MEDS: ketorolac 30 mg/mL INJ IVP (08:14)
[2023-09-28] MEDS: acetaminophen 1,000 MG/100 ML PIGGYBACK 400 MG IV (08:15)
--- NOTE | 2023-09-28 08:48 | W.PM.OPSUD ---
Surgery/Procedure H&P Update DATE OF PROCEDURE: September 28, 2023 DATE H&P PERFORMED: 08/23/23 H&P UPDATE INFORMATION: I have examined patient prior to procedure and No changes to prior documentation PREOP DIAGNOSIS: Left shoulder biceps tendinitis/tearing, subacromial impingement PRIMARY INDICATION FOR PROCEDURE: Left shoulder biceps tendinitis/tearing, subacromial impingement PLANNED PROCEDURE: Operation Date: 09/28/23 08:50 Proposed Procedures p Shoulder Arthroscopy/ diagnostic and arthroscopic surgery with possible biceps tenodesis(Left) - DO elijah Bose Subacromial Decompression(Left) - Harrison Vallejo DO
--- NOTE | 2023-09-28 08:49 | W.PM.OPSFHP ---
Same Day Surgery H&P Indication for Procedure/HPI DATE OF PROCEDURE: September 28, 2023 CHIEF COMPLAINT/INDICATIONFOR SURGICAL PROCEDURE: Left shoulder bicep tendinitis/tearing, subacromial impingement PREOP DIAGNOSIS: Left shoulder biceps tendinitis/tearing, subacromial impingement PLANNED PROCEDURE: Operation Date: 09/28/23 08:50 Proposed Procedures p Shoulder Arthroscopy/ diagnostic and arthroscopic surgery with possible biceps tenodesis(Left) - Harrison Vallejo DO s Subacromial Decompression(Left) - Harrison Vallejo DO Medications/Allergies* Home Medications Medication Instructions Recorded Confirmed Type cetirizine 10 mg capsule (Zyrtec) 10 mg PO DAILY PRN Allergy Symptoms 05/06/23 09/27/23 History ibuprofen 200 mg capsule 200 mg PO Q6H PRN Pain 05/06/23 09/28/23 History valsartan 80 mg tablet 80 mg PO DAILY 05/06/23 09/27/23 History Allergies/Adverse Reactions Allergy/AdvReac Type Severity Reaction Status Date / Time No Known Allergies Allergy Verified 08/23/23 14:45 Current Medications: Generic Name Dose Route Start Last Admin Trade Name Freq PRN Reason Stop Dose Admin Sodium Chloride 1,000 mls @ 30 mls/hr 09/28/23 07:30 09/28/23 07:59 Sodium Chloride 0.9% IV 09/29/23 07:29 30 mls/hr .Q24H MARKOS Administration Pertinent History/Comorbid Conditions* Medical History (Updated 08/23/23 @ 15:38 by VALDEZ Hawthorne) Hypertension Surgical History (Updated 08/29/19 @ 07:50 by Reji Dickey MD) Hx of oral surgery Teeth extraction Social History Smoking and tobacco/nicotine status: current some day tobacco/nicotine user cigars Alcohol intake: current Alcohol intake frequency: few times a month Pertinent Exam Findings alert, oriented x 3, operative site marked and procedure specific exam findings Left shoulder pain over the AC joint patient did receive preoperative block and has no motor or sensory at this time. Recommendations Surgery/Procedure today Other Plans: Plan to proceed to the OR today with left shoulder diagnostic and surgical arthroscopy with possible bicep tenodesis and subacromial decompression. Coding Level of Care Code Acute Code for Franklyn Steele
[2023-09-28] MEDS: ceFAZolin 2,000 MG in sodium chloride 0.9% (plus) 50 ML 100 MG IV (09:15)
[2023-09-28] MEDS: EPINEPHrine 1 mg/mL INJ 2 MG XX (09:56)
--- NOTE | 2023-09-28 10:43 | P.BOP_ITS ---
Date of Procedure: [September 28, 2023] Surgeon: [Dr. Yoni DO] Woodworking Machine Operator(s): [Harry Vallejo PA-C] Procedure(s) performed: [Left shoulder diagnosis surgical arthroscopy Biceps tenodesis Subacromial decompression] Findings of the procedure(s): [Left shoulder biceps tendinitis and subacromial bursitis] Estimated blood loss: [1 ml] Specimen(s) removed: [N/A] Post-operative diagnosis: [Left shoulder biceps tendinitis and subacromial bursitis]
--- NOTE | 2023-09-28 10:45 | PM.PACU ---
PACU note Narrative: Patient is a 38-year-old male just underwent a left shoulder arthroscopy. Patient transferred to PACU in stable condition. Pain is well controlled. shoulder Dressing on , dry and in place. Patient's operative arm is in a shoulder immobilizer. patient is somnolent. Patient's fingers are warm with good perfusion. Normal cap refill under 2 seconds. Unable to assess further range of motion in arm due to sling. Unable to assess sensation due to residual localized anesthetic. Exam: somnolent, arousable Disposition: discharged
--- NOTE | 2023-09-28 12:22 | P.OP_ITS ---
Operative Report Date of procedure: September 28, 2023 Surgeon: Harrison Vallejo DO [employer] Technician: Harry Vallejo PA-C: PA was necessary for assistance in this case with shoulder positioning to execute the procedure, assistance with instrumentation, as well as implant fixation when necessary, assist with wound closure and dressing application. Procedure: Preoperative diagnosis. Left shoulder bicep tendinitis/tearing, subacromial impingement Post-op?diagnosis:? 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 Left?shoulder?biceps tendon tear, superior labral tearing with unstable bicep anchor Left?shoulder?subacromial bursitis/impingement Procedure done: Left?shoulder?diagnostic and surgical arthroscopy with biceps tenodesis Left?shoulder?diagnostic and surgical arthroscopy subacromial decompression (acromioplasty and bursectomy) Surgeon: Harrison Vallejo DO Estimated blood loss: [1 ]mL IV fluids: See anesthesia record Implants: Arthrex biceps tenodesis 4.75 loop and tack implant system Complications: None Condition: stable Disposition: same day Brief History: Patient been seen and worked up in the outpatient setting for Left?shoulder?pain. Patient has significant left shoulder biceps tendinitis and had appropriate response with injection but pain is recurred he is also failed conservative treatment. Patient's failed conservative treatment and has weakness.? We talked about treatment?options far as nonoperative and?operative intervention..? We talked about risk benefits complication alternatives surgical nonsurgical treatment?options.? Understanding risk of surgery pt agrees to proceed with surgical intervention.? All questions have been answered at this time.? Patient elects proceed with surgery and consent obtained in office. Procedure: Patient seen evaluated in the preoperative holding area.? Consent reviewed and signed with patient.? Correct extremity marked.? Patient seen evaluated by anesthesia department received regional anesthesia.? Once ready for surgery was taken back to the?operative suite.? Patient then subsequently underwent anesthesia per the anesthesia department was transported onto the OR table.? Patient was then placed into a lateral decubitus position with a beanbag and was appropriately secured to the bed.? All bony prominences well-padded.? Patient then had the Left upper extremity was then prepped and draped in standard orthopedic fashion.? Patient received appropriate preoperative antibiotics.? Final timeout performed. The Left upper extremity was then held in hanging from traction utilizing sterile technique.? Next started with standard diagnostic and surgical arthroscopy with posterior portal position introduced arthroscope into the glenohumeral joint.? Visualized the glenohumeral joint I then introduced a spinal needle within the rotator cuff interval to confirm appropriate anterior portal placement.? Once this was confirmed I then made my small incision and then introduced my arthroscopic shaver into the glenohumeral joint.? After thorough debridement was clearly evident patient had a significantly thickened middle glenohumeral ligament consistent with Peterson complex. There is no evidence of anterior labral tearing. As result this normal variant was left alone. After flushing the joint fluid, was clearly evident patient had biceps tendon tearing as well as Superior labral tear. Patient had appreciable unstable biceps anchor most pronounced in the superior labrum. Given there appears to be healthy intra-articular tendon plan was for an intra-articular biceps tenodesis at the superior portion as it enters the intertubercular groove. Thermal wand introduced into the rotator interval. I then release of the rotator interval to have appropriate visualization and the ability to perform biceps tenodesis. At this point I established a purple passport cannula which was introduced. Next I performed an Arthrex loop and tap biceps tenodesis. Passer was then made around the tendon luggage tag stitch around and then thru the tendon and around twice I then utilized a thermal wand to release the biceps tendon at the anchor to perform with tenotomy. I then loaded with suture onto an Arthrex 4.75 swivel lock suture anchor. A punch was then placed in appropriate position at the entry point into the intertubercular groove just superior to the subscapularis t endon. Punch was then introduced to the appropriate depth. The suture loaded on the swivel lock was then advanced held under appropriate tension and shoulder lock anchor was then advanced and had excellent fixation. Excess suture was then cut biceps tenodesis was complete. I then utilized a thermal wand to seal the edges of the superior labrum. Next I evaluated the subscapularis tendon which was intact and no evidence of tear. The rest of the labrum was intact. I then visualized the glenohumeral joint.? The glenohumeral joint was found to have grade 0-1? chondromalacia throughout.? Infrapatellar pouch was free of loose bodies from viewing the posterior portal.? Next a visualized the rotator cuff superiorly and there was found to be a intact with negative escape bubble sign.? ?This completed my work within the glenohumeral joint all fluid was suctioned free of the joint.? ?Next I reintroduced the arthroscope posteriorly.? And went to the subacromial space.? I established my lateral working portal. Thermal wand was then introduced laterally and then I subsequently performed extensive bursectomy of the subacromial space.? Patient had a large anterior bone spur.? I then pe rformed an acromioplasty to complete my subacromial decompression. Complete subacromial decompression was performed with appropriate acromioplasty to flat surface as well and has extensive bursectomy of the subacromial space. Visualized the rotator cuff. Rotator cuff was once again visualized and found to be intact. I took the?shoulder?through range of motion and the rotator cuff was stable and moved as a unit. ?Next I then introduced the arthroscopic shaver posteriorly to complete my subacromial decompression appropriate complaining all the way up to the lateral edge of the acromion.? This completed the surgery.? All fluid was suctioned from the?shoulder.? All instruments were removed.? The lateral incision was then closed with nylon stitches.? As well as the portal sites closed with portal nylon stitches.? Xeroform 4 x 4's ABD and tape was then applied to the Left?shoulder?and was placed into a?shoulder?abduction pillow sling for bicep tenodesis.? Patient was then awakened from anesthesia and then taken back to PACU in stable condition.? Patient tolerated procedure without any issues. Disposition: Patient taken back in stable condition recovering well.? Dressings on in place clean dry and intact.? Will be nonweightbearing to the Left upper extremity.? Follow biceps tenodesis protocol.? Patient to follow-up with orthopedics in the office in 2 weeks.? Patient will receive appropriate discharge instruction as well as pain medication postoperatively.? All questions answered.? We will contact the office for any questions or concerns.
--- NOTE | 2023-09-28 13:15 | ANE.PACU2 ---
Inpatient post-anesthesia follow up: Airway intact: Yes Vital signs: Temperature 97.9 F Pulse Rate 64 Respiratory Rate 16 Blood Pressure 140/97 Pulse Oximetry 97 Oxygen Delivery Me thod Room Air Oxygen Flow Rate 6 Fraction of Inspir ed Oxygen Hydration adequate: Yes Nausea and vomiting: No Pain level: 1 Mental status: Baseline
== END 2023-09-28 13:15 | disposition home or self-care (01) ==
PROVIDERS: PCP Family Medicine; Visit Provider Student in an Organized Health Care Education/Training Program
PROC: (CPT 29805; principal; 2023-09-28 08:40)
PROC: (CPT 29826; 2023-09-28 08:40)
DX: S46.112A Strain of muscle, fascia and tendon of long head of biceps, left arm, initial encounter (principal); X58.XXXA Exposure to other specified factors, initial encounter; M25.812 Other specified joint disorders, left shoulder; I10 Essential (primary) hypertension; F17.290 Nicotine dependence, other tobacco product, uncomplicated
CPT/HCPCS: 29826; 29828; C1713; J0131; J0171; J0690; J1100; J1200; J1885; J2250; J2405; J2704; J2710; J2795; J3010; J3490; J7030

== ENCOUNTER 2025-04-16 19:56 | Outpatient (CLI) | payer OTHER, SELFPAY | END 2025-04-16 19:57 | disposition home or self-care (01) | LOC: SLEEP 19:58 | PROVIDERS: PCP Family Medicine; Referring Provider Nurse Practitioner Family; Visit Provider Internal Medicine Pulmonary Disease | DX: G47.33 Obstructive sleep apnea (adult) (pediatric) (principal) | CPT/HCPCS: 95810 ==